=== PATIENT | male | born 1950 | race Caucasian/White ===

== ENCOUNTER 2016-12-09 08:40 | Day surgery (SDC) | payer MEDICARE, BC ==
[~2016-12-09 08:40] MED LIST: PROPOFOL INJ 200 MG/20 ML VIAL IV ONE
[2016-12-09 10:05] VITALS: BP 102/67
--- NOTE | 2016-12-09 14:05 | Operative Report ---
Operative Report DATE OF SURGERY: 12/09/16 Operative Report: The risks, benefits and alternatives of the procedure including risks of bleeding, perforation requiring surgery are explained to the patient detail and informed consent is obtained. Patient is placed in a left lateral decubital position about back to the endoscopy suite. Timeout is called. Propofol medication is administered. A rectal examination is done which did not reveal any masses, tears or fissures. An Olympus videoscope was inserted into the patient's rectum. Scope was then carefully advanced all the way to the cecum. The cecum was identified by the usual anatomical landmarks of the ileocecal valve as well as the appendiceal office. Prep is good. Photo documentations obtained. Scope was then sequentially pulled back via the various segments of the colon including the ascending colon, hepatic flexure, transverse colon, splenic flexure, descending colon and finally into the rectosigmoid portions of the colon. Retroflexion maneuvers performed. PREOPERATIVE DIAGNOSIS: Personal history of polyp. Family history of colon cancer POSTOPERATIVE DIAGNOSIS: Small sessile colon polyp noted in the sigmoid area that is removed via biopsy forceps. Diverticulosis OPERATION: Colonoscopy with biopsy SURGEON: VALERIY RESTREPO ANESTHESIA: LMAC TISSUE REMOVED OR ALTERED: Colon Specimen retrieved COMPLICATIONS: None. ESTIMATED BLOOD LOSS: none. INTRAOPERATIVE FINDINGS: As described above. PROCEDURE: Patient tolerated the procedure well. No immediate postprocedure complications are noted. Patient is discharged in good condition. Discharge date 12/09/2016. Discharge diet: Regular. Discharge activity: Regular. Patient does have a 3-5 years surveillance. He is instructed to call the office or proceed to the emergency room after any further problems or questions. We'll await on biopsies. He does have a 2-3 week follow-up to discuss findings.
== END 2016-12-09 10:03 | disposition home or self-care (01) ==
LOC: END 08:40
PROVIDERS: ATTEND Internal Medicine Gastroenterology
PROC: 0DBN8ZX Excision of Sigmoid Colon, Via Natural or Artificial Opening Endoscopic, Diagnostic (ICD-10-PCS; principal; 2016-12-09 10:30)
DX: K63.5 Polyp of colon (principal); K57.30 Diverticulosis of large intestine without perforation or abscess without bleeding; D12.5 Benign neoplasm of sigmoid colon; K63.89 Other specified diseases of intestine; Z80.0 Family history of malignant neoplasm of digestive organs
CPT/HCPCS: 45380; 88305 ×2; J2704; 810

== ENCOUNTER 2018-10-05 08:25 | Day surgery (SDC) | payer MEDICARE, BC ==
[2018-10-05] MEDS ORDERED: PROPOFOL INJ 200 MG/20 ML VIAL IV ONE (10:00)
[2018-10-05 10:39] VITALS: BP 113/67
--- NOTE | 2018-10-05 13:52 | Operative Report ---
Operative Report DATE OF SURGERY: 10/05/18 Operative Report: The risks, benefits and alternatives of the procedure including the risks of bleeding, perforation requiring surgery are explained to the patient in detail and informed consent was obtained. Patient was taken back to the endoscopy suite and placed in the left, lateral decubital position. Timeout was called. Propofol medication is administered. Rectal examination is done which did not reveal any masses, tears or fissures. An Olympus videoscope was introduced into the patient's rectum. The scope was then carefully advanced all the way to the cecum. The cecum was identified by the usual anatomical landmarks including the ileocecal valve as well as the appendiceal office. Photodocumentation is obtained. The scope was then sequentially pulled back via the various segments of the colon including the ascending colon, hepatic flexure, transverse colon, splenic flexure, descending colon and finally into the rectosigmoid portions of the colon. Retroflexion maneuver is performed. PREOPERATIVE DIAGNOSIS: Personal history of polyp. Family history of colon cancer POSTOPERATIVE DIAGNOSIS: Possible adenomatous polyp located at the junction of the sigmoid and the descending colon that was removed via snare polypectomy OPERATION: Colonoscopy with snare polypectomy SURGEON: VALERIY RESTREPO ANESTHESIA: LMAC TISSUE REMOVED OR ALTERED: As noted above. COMPLICATIONS: None. ESTIMATED BLOOD LOSS: None. INTRAOPERATIVE FINDINGS: As noted above. PROCEDURE: Patient tolerated the procedure well. No immediate postprocedure complications are noted. Patient discharged in good condition. Discharge date 10/05/2018. Discharge diet: Regular. Discharge activity: Regular. 2-3-week follow-up to discuss findings. Patient is instructed to call the office or proceed to the emergency room should there be any further problems or questions. Wait on the pathology. Possible 3-5-year surveillance colonoscopy.
== END 2018-10-05 10:28 | disposition home or self-care (01) ==
LOC: END 08:25
PROVIDERS: ATTEND Internal Medicine Gastroenterology
DX: K63.5 Polyp of colon (principal); Z80.0 Family history of malignant neoplasm of digestive organs; Z86.010 Personal history of colon polyps
CPT/HCPCS: 45385; 88305 ×2; J2704; 811